=== PATIENT | male | born 1985 | race Caucasian/White ===

== ENCOUNTER 2020-10-19 23:46 | Inpatient (IN) | payer SELFPAY ==
[~2020-10-19] VITALS: Ht 195.6 cm; Wt 90.7 kg
[2020-10-20] MEDS ORDERED: CEFEPIME 1 GM in SODIUM CHLORIDE 0.9% 50ML 50 ML IV ONE (01:15)
[2020-10-20] MEDS ORDERED: SODIUM CHLORIDE 0.9% 1000ML 1,000 ML IV ONE (01:15)
[2020-10-20] MEDS ORDERED: ACETAMINOPHEN 325 MG TAB PO ONE (01:15)
[2020-10-20] MEDS ORDERED: VANCOMYCIN 1GM/NS 250 ML 250 ML IV SCH (01:15)
[2020-10-20] MEDS ORDERED: Vancomycin IV 1 GM in SODIUM CHLORIDE 0.9% 250ML 250 ML IV ONE (01:30)
[2020-10-20 01:46] LABS: BASOPHILS % 0.3 % (0.0-1.0); EOSINOPHILS % 0.1 % (0.0-6.0); HEMATOCRIT 41.1 % (38.2-49.6); HEMOGLOBIN 13.5 g/dL (14.0-18.0); LYMPHOCYTES # (AUTO) 2.1 (1.0-3.2); LYMPHOCYTES % 19.5 % (18.0-39.1); MEAN CORPUSCULAR HEMOGLOBIN 27.5 pg (28-32); MEAN CORPUSCULAR HGB CONC 32.8 g/dL (31-35); MEAN CORPUSCULAR VOLUME 83.7 fL (81-99); MONOCYTES # (AUTO) 0.8 (0.2-0.8); MONOCYTES % 7.6 % (4.4-11.3); NEUTROPHILS # (AUTO) 7.7 (2.1-6.9); NEUTROPHILS % 72.3 % (38.7-80.0); PLATELET COUNT 368 x10e3/uL (140-360); RED BLOOD COUNT 4.91 x10e6/uL (4.3-5.7); RED CELL DISTRIBUTION WIDTH 14.9 % (11.7-14.4)
[2020-10-20 01:57] LABS: ALBUMIN 3.5 g/dL (3.5-5.0); ALBUMIN/GLOBULIN RATIO 0.6 (0.8-2.0); ANION GAP 15.8 mmol/L (8-16); CALCIUM 9.5 mg/dL (8.4-10.2); CREATININE, SERUM 0.79 mg/dL (0.72-1.25); POTASSIUM 4.8 mmol/L (3.5-5.1)
[2020-10-20 02:49] LABS: CLARITY,URINE CLOUDY (CLEAR); COLOR,URINE YELLOW (YELLOW)
[2020-10-20 02:50] LABS: AMPHETAMINES SCREEN,URINE POSITIVE (NEGATIVE); KETONES,URINE NEGATIVE (NEGATIVE); LEUKOCYTE ESTERASE ,URINE NEGATIVE (NEGATIVE); NITRITE,URINE NEGATIVE (NEGATIVE); PHENCYCLIDINE SCREEN,URINE NEGATIVE (NEGATIVE); PROTEIN,URINE DIPSTICK 1+ (NEGATIVE)
[2020-10-20 02:51] LABS: BENZODIAZEPINES SCREEN,URINE NEGATIVE (NEGATIVE); URINE UROBILINOGEN 1 mg/dL (0.2 - 1)
[2020-10-20] MEDS ORDERED: LISINOPRIL 10 MG TAB PO ONE ×2 (03:15→12:45)
[2020-10-20] MEDS ORDERED: LISINOPRIL 10 MG TAB ONE (03:19)
[2020-10-20 03:30] LABS: BACTERIA,URINE MANY /HPF; EPITHELIAL CELLS,URINE FEW /LPF
[2020-10-20] MEDS: SODIUM CHLORIDE 0.9% 1000ML 1,000 ML IV SCH ×3 (04:14→19:00)
[2020-10-20] MEDS ORDERED: CLONIDINE HCL 0.1 MG TAB PO ONE (04:30)
[2020-10-20] MEDS ORDERED: CLONIDINE HCL 0.1 MG TAB ONE (04:32)
[2020-10-20] MEDS: LISINOPRIL 10 MG TAB PO SCH (06:04)
[2020-10-20] MEDS: ACETAMINOPHEN 325 MG TAB PO PRN ×2 (06:40→11:27)
[2020-10-20 09:00] VITALS: BP 184/123
[2020-10-20] MEDS ORDERED: HYDRALAZINE HCL 20 MG/ML VIAL IV PRN (09:30)
[2020-10-20] MEDS: CEFEPIME 1 GM in SODIUM CHLORIDE 0.9% 50ML 50 ML IV SCH ×2 (09:44→19:11)
[2020-10-20] MEDS ORDERED: LABETALOL HCL 5 MG/ML 20ML VIAL IV STA ×2 (10:16→11:07)
[2020-10-20] MEDS ORDERED: LABETALOL HCL 5 MG/ML 20ML VIAL IV PRN (12:00)
[2020-10-20] MEDS: MORPHINE SULFATE INJ 4 MG/ML INJ 1ML IV PRN ×3 (12:15→22:40)
[2020-10-20] MEDS: NIFEDIPINE CR 30 MG TAB PO SCH (12:37)
[2020-10-20 14:27] VITALS: BP 187/120
[2020-10-20] MEDS ORDERED: CLONIDINE HCL 0.1 MG TAB PO STA (14:56)
[2020-10-20 15:10] VITALS: BP 187/120
[2020-10-20] MEDS ORDERED: IOPAMIDOL 370 MG/ML 200 ML INFUS..BTL INJ ONE (15:26)
[2020-10-20] MEDS: Vancomycin IV 1 GM in SODIUM CHLORIDE 0.9% 250ML 250 ML IV SCH (16:53)
[2020-10-20] MEDS: ONDANSETRON HCL INJ 2MG/ML 2ML 2 MG/ML VIAL IV PRN ×2 (17:02→22:40)
[2020-10-20 20:15] VITALS: BP 187/120
[2020-10-20 21:12] VITALS: BP 114/79
[2020-10-21 01:59] VITALS: BP 120/76
[2020-10-21] MEDS: CEFEPIME 1 GM in SODIUM CHLORIDE 0.9% 50ML 50 ML IV SCH ×2 (02:00→09:09)
[2020-10-21] MEDS: MORPHINE SULFATE INJ 4 MG/ML INJ 1ML IV PRN ×2 (02:55→07:22)
[2020-10-21] MEDS: ONDANSETRON HCL INJ 2MG/ML 2ML 2 MG/ML VIAL IV PRN ×2 (02:55→07:22)
[2020-10-21] MEDS: Vancomycin IV 1 GM in SODIUM CHLORIDE 0.9% 250ML 250 ML IV SCH (03:56)
[2020-10-21 06:03] LABS: BASOPHILS # (AUTO) 0.1 (0.0-0.1); BASOPHILS % 0.8 % (0.0-1.0); EOSINOPHILS # (AUTO) 0.3 (0.0-0.4); EOSINOPHILS % 3.5 % (0.0-6.0); HEMATOCRIT 41.1 % (38.2-49.6); HEMOGLOBIN 13.1 g/dL (14.0-18.0); LYMPHOCYTES # (AUTO) 2.1 (1.0-3.2); LYMPHOCYTES % 29.4 % (18.0-39.1); MEAN CORPUSCULAR HGB CONC 31.9 g/dL (31-35); MEAN CORPUSCULAR VOLUME 84.7 fL (81-99); MONOCYTES # (AUTO) 0.7 (0.2-0.8); MONOCYTES % 10.2 % (4.4-11.3); NEUTROPHILS % 55.8 % (38.7-80.0); PLATELET COUNT 331 x10e3/uL (140-360); RED BLOOD COUNT 4.85 x10e6/uL (4.3-5.7); RED CELL DISTRIBUTION WIDTH 14.9 % (11.7-14.4)
[2020-10-21 06:35] VITALS: BP_SYST 125; BP_SYST 130; BP_DIAS 54; BP_DIAS 84
[2020-10-21 06:47] LABS: ALBUMIN/GLOBULIN RATIO 0.6 (0.8-2.0); ANION GAP 15.1 mmol/L (8-16); CALCIUM 9.3 mg/dL (8.4-10.2); CREATININE, SERUM 0.73 mg/dL (0.72-1.25); POTASSIUM 4.1 mmol/L (3.5-5.1)
[2020-10-21 08:02] VITALS: BP 142/99
[2020-10-21 08:39] VITALS: BP 142/99
[2020-10-21] MEDS: LISINOPRIL 10 MG TAB PO SCH (09:08)
[2020-10-21] MEDS: NIFEDIPINE CR 30 MG TAB PO SCH (09:08)
[2020-10-21] MEDS ORDERED: CEPHALEXIN500 MG PO (11:52)
[2020-10-21] MEDS ORDERED: BACTRIM DS TAB1 EACH PO (11:52)
[2020-10-21] MEDS ORDERED: HYDROCHLOROTHIA25 MG PO (11:52)
== END 2020-10-21 11:00 | disposition left against medical advice (07) | DRG 603 ==
LOC: ER 10-20 01:05 → ERHOLD 10-20 03:03 → MED/SURG3 10-20 15:01
PROVIDERS: ADMIT Internal Medicine; ATTEND Internal Medicine
DX: L03.113 Cellulitis of right upper limb (principal); N39.0 Urinary tract infection, site not specified; I10 Essential (primary) hypertension; F90.9 Attention-deficit hyperactivity disorder, unspecified type; R74.01 Elevation of levels of liver transaminase levels; F15.90 Other stimulant use, unspecified, uncomplicated; F11.90 Opioid use, unspecified, uncomplicated; F12.90 Cannabis use, unspecified, uncomplicated; Z82.49 Family history of ischemic heart disease and other diseases of the circulatory system; Z20.822 Contact with and (suspected) exposure to COVID-19
CPT/HCPCS: 36415; 80053; 80307; 81001; 82550; 83036; 83605; 85025; 86140; 87040; 87086; 99284; J0692; J2270; J2405; J3370; J7030; J7050; Q9967; U0002

== ENCOUNTER 2020-10-21 11:31 | Emergency (ER) | payer SELFPAY ==
[~2020-10-21] VITALS: Ht 195.6 cm; Wt 95.3 kg
[2020-10-21] MEDS ORDERED: CEPHALEXIN500 MG PO (11:52)
[2020-10-21] MEDS ORDERED: HYDROCHLOROTHIA25 MG PO (11:52)
[2020-10-21] MEDS ORDERED: BACTRIM DS TAB1 EACH PO (11:52)
[2020-10-21 11:57] VITALS: BP 168/102
== END 2020-10-21 12:02 | disposition home or self-care (01) ==
LOC: ER 11:48
DX: L03.113 Cellulitis of right upper limb (principal); I10 Essential (primary) hypertension; F90.9 Attention-deficit hyperactivity disorder, unspecified type
CPT/HCPCS: 99282